=== PATIENT | male | born 1945 ===

== ENCOUNTER 2021-03-11 18:31 | Observation (INO) | payer MEDICARE, OTHER ==
[2021-03-11] MEDS ORDERED: Sodium Chloride 0.9% 2.5 ML Syringe FLUSH PRN (18:35)
[2021-03-11] MEDS ORDERED: Sodium Chloride 0.9% 10 ML Syringe FLUSH PRN (18:35)
[2021-03-11] MEDS ORDERED: Aspirin 81 MG Tab.Chew PO ONE (18:38)
--- NOTE | 2021-03-11 18:41 | EDM.PDOC ---
ED HPI GENERAL MEDICAL PROBLEM - General Chief Complaint: Chest Pain Stated Complaint: Chest pain Time Seen by Provider: 03/11/21 18:36 Source of Information: Reports: Patient History Limitations: Reports: No Limitations - History of Present Illness INITIAL COMMENTS - FREE TEXT/NARRATIVE: HISTORY AND PHYSICAL: History of present illness: Patient is a 75-year-old male who presents to the emergency room with complaints of midsternal chest pain that started at 230 this afternoon. He states the pain started while he was driving and he felt slightly short of breath with a sharp pressure across his anterior chest. Describes the pain as constant but has improved since first noticing it. Patient denies any fever, chills, headache, change in vision, syncope or near syncope. Denies any back pain, hemoptysis or cough. Denies any abdominal pain, nausea, vomiting, diarrhea, constipation or dysuria. Has not noted any blood in urine or stool. Patient has been eating and drinking appropriately. Past medical history of type 2 diabetes, hypertension, elevated cholesterol, and prostate cancer (resolved). Primary care provider is poncho Conde routinely. Denies any personal history of heart disease. Denies any smoking history. Review of systems: As per history of present illness and below otherwise all systems reviewed and negative. Past medical history: As per history of present illness and as reviewed below otherwise noncontributory. Surgical history: As per history of present illness and as reviewed below otherwise noncontributory. Social history: See social history for further information Family history: As per history of present illness and as reviewed below otherwise noncontributory. Physical exam: General: Well developed and well nourished 75 year old male. Alert and orientated x 3. Nontoxic in appearance and in no acute distress. Vital signs are stable and have been reviewed by me. Nursing notes were reviewed. HEENT: Atraumatic, normocephalic, pupils equal and reactive bilaterally, negative for conjunctival pallor or scleral icterus, mucous membranes moist, TMs normal bilaterally, throat clear, neck supple, nontender, trachea midline. No drooling or trismus noted. No meningeal signs. No hot potato voice noted. Lungs: Clear to auscultation bilaterally. No wheezes, rales, or rhonchi. Chest nontender. Normal work of breathing, no accessory muscles used. Heart: S1S2, regular rate and rhythm without overt murmur, gallops, or rubs. No JVD. No peripheral edema Abdomen: Soft, obese, nontender. Normoactive bowel sounds. Negative for masses or costovertebral tenderness. Skin: Intact, warm, dry. No lesions or rashes noted. Hematologic: No petechiae or purpra. Mucosa appropriate color and normal nail bed color and refill. Extremities: Atraumatic, moves all extremities per self without difficulty or deficits, negative for cords or calf pain. Neurovascular unremarkable. Neuro: Awake, alert, oriented. Cranial nerves II through XII unremarkable. Cerebellum unremarkable. Motor and sensory unremarkable throughout. Exam nonfocal. Psychiatric: Mood and affect are appropriate. Normal thought process. Answering questions appropriately. Notes: *This patient was seen and evaluated during the 2019 SARS-CoV-2 novel coronavirus pandemic period. Community viral transmission is ongoing at time of this encounter and the emergency department is operating under pandemic response procedures. Patient is a 75-year-old male who presents to the emergency room with complaints of anterior chest pain. Discomfort started at 2:30 in the afternoon and has gradually gotten better. He denies any personal history of heart disease. States he has seen a wrapper stitcher in the past as it was recommended but "everything is fine". Physical exam is unremarkable. Patient does have a moderate heart score due to age, history and risk factors. Lab work, including initial troponin is normal. Chest x-ray is unremarkable. I have talked with the patient about today's findings, in addition to providing specific details for plan of care. Reassessment at the time of disposition demonstrates that the patient is in no acute distress. He is pain free at this time. Due to him being a moderate risk, will admit for observation. Patient is currently resting. He offers no current complaints or concerns. Patient has had the COVID-19 vaccinations, ID card to validate. Dr Carl was consulted and agreeable to plan of care. Patient will be placed on telemetry. Diagnostics: CBC, CMP, UA, troponin, EKG, chest x-ray, COVID-19 Therapeutics: Saline lock, aspirin 324 mg, morphine Impression: Chest pain Plan: Observation admission to med/surg with telemetry Definitive disposition and diagnosis as appropriate pending reevaluation and review of above. chest Pain Score (Numeric/FACES): 5 - Related Data Allergies Allergy/AdvReac Type Severity Reaction Status Date / Time No Known Allergies Allergy Verified 03/11/21 18:35 Home Meds: Home Meds Enalapril [Vasotec] 20 mg PO DAILY 03/11/21 [History] Pantoprazole [ProTONIX IV] 40 mg PO DAILY 03/11/21 [History] Pioglitazone HCl 15 mg PO DAILY 03/11/21 [History] Tolterodine Tartrate 4 mg PO DAILY 03/11/21 [History] amLODIPine [Norvasc] 2.5 mg PO DAILY 03/11/21 [History] atorvaSTATin [Lipitor] 10 mg PO DAILY 03/11/21 [History] glipiZIDE [Glipizide] 10 mg PO DAILY 03/11/21 [History] metFORMIN [Glucophage] 2,000 mg PO DAILY 03/11/21 [History] ED ROS GENERAL - Review of Systems Review Of Systems: Comprehensive ROS is negative, except as noted in HPI. ED EXAM, GENERAL - Physical Exam Exam: See Below (See dictation) Course - Vital Signs Last Recorded V/S: Last Vital Signs Temp 97 F 03/11/21 18:33 Pulse 79 03/11/21 18:33 Resp BP 168/79 H 03/11/21 18:33 Pulse Ox 95 03/11/21 18:33 - Orders/Labs/Meds Orders: Active Orders 24 hr Category Date Time Status Admission Status [Patient Status] [ADT] Stat ADT 03/11/21 19:41 Active EKG Documentation Completion [RC] STAT Care 03/11/21 18:35 Active CORONAVIRUS COVID-19 PAZ [MOLEC] Stat Lab 03/11/21 18:38 Ordered Sodium Chloride 0.9% [Saline Flush] Med 03/11/21 18:35 Active 10 ml FLUSH ASDIRECTED PRN Sodium Chloride 0.9% [Saline Flush] Med 03/11/21 18:35 Active 2.5 ml FLUSH ASDIRECTED PRN Saline Lock Insert [OM.PC] Stat Oth 03/11/21 18:35 Ordered Medication Orders Sodium Chloride (Sodium Chloride 0.9% 10 Ml Syringe) 10 ml FLUSH ASDIRECTED PRN PRN Reason: Keep Vein Open Last Admin: 03/11/21 19:50 Dose: 10 ml Documented by: ELIZABETH Sodium Chloride (Sodium Chloride 0.9% 2.5 Ml Syringe) 2.5 ml FLUSH ASDIRECTED P RN PRN Reason: Keep Vein Open Last Admin: 03/11/21 19:50 Dose: 2.5 ml Documented by: ELIZABETH Labs: Laboratory Tests 03/11/21 03/11/21 Range/Units 18:41 18:41 WBC 4.32 (4.0-11.0) K/uL RBC 4.21 L (4.50-5.90) M/uL Hgb 13.3 (13.0-17.0) g/dL Hct 40.0 (38.0-50.0) % MCV 95.0 (80.0-98.0) fL MCH 31.6 (27.0-32.0) pg MCHC 33.3 (31.0-37.0) g/dL RDW Std Deviation 46.9 (28.0-62.0) fl RDW Coeff of Tiara 14 (11.0-15.0) % Plt Count 169 (150-400) K/uL MPV 10.30 (7.40-12.00) fL Neut % (Auto) 49.6 (48.0-80.0) % Lymph % (Auto) 37.0 (16.0-40.0) % [place] % (Auto) 11.1 (0.0-15.0) % Eos % (Auto) 2.1 (0.0-7.0) % Baso % (Auto) 0.2 (0.0-1.5) % Neut # (Auto) 2.1 (1.4-5.7) K/uL Lymph # (Auto) 1.6 (0.6-2.4) K/uL [place] # (Auto) 0.5 (0.0-0.8) K/uL Eos # (Auto) 0.1 (0.0-0.7) K/uL Baso # (Auto) 0.0 (0.0-0.1) K/uL Nucleated RBC % 0.0 /100WBC Nucleated RBCs # 0 K/uL Sodium 142 (136-148) mmol/L Potassium 4.1 (3.5-5.1) mmol/L Chloride 104 (98-107) mmol/L Carbon Dioxide 27.6 (21.0-32.0) mmol/L BUN 18 (7.0-18.0) mg/dL Creatinine 1.3 (0.8-1.3) mg/dL Est Cr Clr Drug Dosing 49.10 mL/min Estimated GFR (MDRD) 53.8 ml/min Glucose 145 H (74-106) mg/dL Calcium 9.2 (8.5-10.1) mg/dL Total Bilirubin 0.5 (0.2-1.0) mg/dL AST 10 L (15-37) IU/L ALT 17 (14-63) IU/L Alkaline Phosphatase 80 (46-116) U/L Troponin I < 0.050 (0.000-0.056) ng/mL Total Protein 6.8 (6.4-8.2) g/dL Albumin 3.3 L (3.4-5.0) g/dL Globulin 3.5 (2.6-4.0) g/dL Albumin/Globulin Ratio 0.9 (0.9-1.6) Meds: Medications Generic Name Dose Route Start Last Admin Trade Name Freq PRN Reason Stop Dose Admin Sodium Chloride 10 ml 03/11/21 18:35 03/11/21 19:50 Sodium Chloride 0.9% 10 Ml Syringe FLUSH 10 ml ASDIRECTED PRN Administration Keep Vein Open Sodium Chloride 2.5 ml 03/11/21 18:35 03/11/21 19:50 Sodium Chloride 0.9% 2.5 Ml Syringe FLUSH 2.5 ml ASDIRECTED PRN Administration Keep Vein Open Discontinued Medications Generic Name Dose Route Start Last Admin Trade Name Freq PRN Reason Stop Dose Admin Aspirin 324 mg 03/11/21 18:38 03/11/21 19:49 Aspirin 81 Mg Tab.Chew PO 03/11/21 18:39 324 mg ONETIME ONE Administration Morphine Sulfate 2 mg 03/11/21 19:25 03/11/21 19:49 Morphine 2 Mg/Ml Syringe IVPUSH 03/11/21 19:26 2 mg ONETIME ONE Administration Departure - Departure Time of Disposition: 19:45 Disposition: Refer to Observation Clinical Impression: Chest pain, rule out acute myocardial infarction Referrals: Corey Treviño MD [Primary Care Provider] - Forms: ED Department Discharge Sepsis Event Note (ED) - Evaluation Sepsis Screening Result: No Definite Risk - Focused Exam Vital Signs: Vital Signs Temp Pulse BP Pulse Ox 03/11/21 18:33 97 F 79 168/79 H 95 - My Orders Last 24 Hours: My Active Orders 03/11/21 18:35 EKG Documentation Completion [RC] STAT Sodium Chloride 0.9% [Saline Flush] 10 ml FLUSH ASDIRECTED PRN Sodium Chloride 0.9% [Saline Flush] 2.5 ml FLUSH ASDIRECTED PRN Saline Lock Insert [OM.PC] Stat 03/11/21 18:38 CORONAVIRUS COVID-19 PAZ [MOLEC] Stat 03/11/21 19:41 Admission Status [Patient Status] [ADT] Stat - Assessment/Plan Last 24 Hours: My Active Orders 03/11/21 18:35 EKG Documentation Completion [RC] STAT Sodium Chloride 0.9% [Saline Flush] 10 ml FLUSH ASDIRECTED PRN Sodium Chloride 0.9% [Saline Flush] 2.5 ml FLUSH ASDIRECTED PRN Saline Lock Insert [OM.PC] Stat 03/11/21 18:38 CORONAVIRUS COVID-19 PAZ [MOLEC] Stat 03/11/21 19:41 Admission Status [Patient Status] [ADT] Stat
--- NOTE | 2021-03-11 18:43 | PCM.EKG ---
#1 Interpretation EKG Interpretation Comments: EKG: As interpreted by ER physician: Mk: Nonspecific ST-T wave abnormalities Normal axis No evidence of ST elevation RI Normal sinus rhythm with a heart of 75 with occasional PAC
[2021-03-11 19:15] LABS: BLOOD UREA NITROGEN,BUN 18 mg/dL (7.0-18.0); CARBON DIOXIDE,CO2 27.6 mmol/L (21.0-32.0); CHLORIDE,CL 104 mmol/L (98-107); GLUCOSE RANDOM 145 mg/dL (74-106); POTASSIUM,K 4.1 mmol/L (3.5-5.1); SODIUM,NA 142 mmol/L (136-148)
[2021-03-11] MEDS ORDERED: Morphine 2 MG/ML SYRINGE IVPUSH ONE (19:25)
--- NOTE | 2021-03-11 19:52 | CR ---
For Patients: As a result of the Century Cures Act, medical imaging exams and procedure reports are released immediately into your electronic medical record. You may view this report before your referring provider. If you have questions, please contact your health care provider. INDICATION: chest pain TECHNIQUE: Chest 1 view. COMPARISON: None. FINDINGS: Cardiovascular and mediastinum: Heart size and vasculature are normal in caliber and appearance. Mediastinum is within normal limits. Lungs and pleural space: Lungs are clear. No sign of infiltrate or mass. No sign of pleural effusion. No pneumothorax. Bones and soft tissues: No significant findings. IMPRESSION: Unremarkable chest. Dictated by: Jagjit Palomino MD @ 03/11/2021 19:51:40 (Electronically Signed)
[2021-03-11] MEDS ORDERED: Glucagon,Human Recombinant 1 MG Vial IM PRN (23:07)
[2021-03-11] MEDS ORDERED: 50% Dextrose in Water 50 ML Syringe IVPUSH PRN (23:07)
--- NOTE | 2021-03-11 23:10 | PCM.HP.2 ---
H&P History of Present Illness - General Date of Service: 03/11/21 Admit Problem/Dx: Admission Diagnosis/Problem Admission Diagnosis/Problem Chest pain, rule out acute myocardial infarction - History of Present Illness Initial Comments - Free Text/Narative: 75 yo male with pmh of HTN, DM, and prostate cancer who presents to the ED with a complaint of chest pain. Patient reports substernal chest pressure while driving home from [facility] [facility]. He had his drive him to the ED. He reports some associated symptoms of shortness of breath. PAtient denies any diaphorsis, cough, or lightheadednes. chest Pain Score (Numeric/FACES): 5 - Related Data Allergies/Adverse Reactions: Allergies Allergy/AdvReac Type Severity Reaction Status Date / Time No Known Allergies Allergy Verified 03/11/21 22:04 Home Medications: Home Meds Alfuzosin HCl [Alfuzosin HCl ER] 10 mg PO BID 03/11/21 [History] Enalapril [Vasotec] 20 mg PO DAILY 03/11/21 [History] Pantoprazole [ProTONIX IV] 40 mg PO DAILY 03/11/21 [History] Pioglitazone HCl 15 mg PO DAILY 03/11/21 [History] Tolterodine Tartrate 4 mg PO DAILY 03/11/21 [History] amLODIPine [Norvasc] 2.5 mg PO DAILY 03/11/21 [History] atorvaSTATin [Lipitor] 10 mg PO DAILY 03/11/21 [History] glipiZIDE [Glipizide] 10 mg PO DAILY 03/11/21 [History] metFORMIN [Glucophage] 1,000 mg PO BIDMEALS 03/11/21 [History] Past Medical History - Infectious Disease History Infectious Disease History: Reports: None - Past Surgical History GI Surgical History: Reports: Cholecystectomy Other Male Surgeries/Procedures: Prostate CA Social & Family History - Tobacco Use Tobacco Use Status *Q: Never Tobacco User Second Hand Smoke Exposure: No - Caffeine Use Caffeine Use: Reports: Coffee Other Caffeine Use: 2 cups in AM - Recreational Drug Use Recreational Drug Use: No H&P Review of Systems - Review of Systems: Review Of Systems: Comprehensive ROS is negative, except as noted in HPI. Exam - Exam Exam: See Below - Vital Signs Vital Signs: Last Vital Signs Temp 36.1 C 03/11/21 18:33 Pulse 76 03/11/21 21:38 Resp 16 03/11/21 21:38 BP 163/69 H 03/11/21 21:38 Pulse Ox 95 03/11/21 21:38 Weight: 135.5 kg - Exam General: Alert, Oriented HEENT: Mucosa Moist & [place] Neck: Supple, Trachea Midline Lungs: Clear to Auscultation, Normal Respiratory Effort Cardiovascular: Regular Rate, Regular Rhythm GI/Abdominal Exam: Normal Bowel Sounds, Soft, Non-Tender Extremities: Non-Tender, Pedal Edema (+1 edema) Skin: Warm, Dry, Intact Neurological: Cranial Nerves Intact. No: Focal Deficit - Patient Data Lab Results Last 24 hrs: Laboratory Results - last 24 hr 03/11/21 03/11/21 Range/Units 18:41 18:41 WBC 4.32 (4.0-11.0) K/uL RBC 4.21 L (4.50-5.90) M/uL Hgb 13.3 (13.0-17.0) g/dL Hct 40.0 (38.0-50.0) % MCV 95.0 (80.0-98.0) fL MCH 31.6 (27.0-32.0) pg MCHC 33.3 (31.0-37.0) g/dL RDW Std Deviation 46.9 (28.0-62.0) fl RDW Coeff of Tiara 14 (11.0-15.0) % Plt Count 169 (150-400) K/uL MPV 10.30 (7.40-12.00) fL Neut % (Auto) 49.6 (48.0-80.0) % Lymph % (Auto) 37.0 (16.0-40.0) % [place] % (Auto) 11.1 (0.0-15.0) % Eos % (Auto) 2.1 (0.0-7.0) % Baso % (Auto) 0.2 (0.0-1.5) % Neut # (Auto) 2.1 (1.4-5.7) K/uL Lymph # (Auto) 1.6 (0.6-2.4) K/uL [place] # (Auto) 0.5 (0.0-0.8) K/uL Eos # (Auto) 0.1 (0.0-0.7) K/uL Baso # (Auto) 0.0 (0.0-0.1) K/uL Nucleated RBC % 0.0 /100WBC Nucleated RBCs # 0 K/uL Sodium 142 (136-148) mmol/L Potassium 4.1 (3.5-5.1) mmol/L Chloride 104 (98-107) mmol/L Carbon Dioxide 27.6 (21.0-32.0) mmol/L BUN 18 (7.0-18.0) mg/dL Creatinine 1.3 (0.8-1.3) mg/dL Est Cr Clr Drug Dosing 49.10 mL/min Estimated GFR (MDRD) 53.8 ml/min Glucose 145 H (74-106) mg/dL Calcium 9.2 (8.5-10.1) mg/dL Total Bilirubin 0.5 (0.2-1.0) mg/dL AST 10 L (15-37) IU/L ALT 17 (14-63) IU/L Alkaline Phosphatase 80 (46-116) U/L Troponin I < 0.050 (0.000-0.056) ng/mL Total Protein 6.8 (6.4-8.2) g/dL Albumin 3.3 L (3.4-5.0) g/dL Globulin 3.5 (2.6-4.0) g/dL Albumin/Globulin Ratio 0.9 (0.9-1.6) Result Diagrams: 03/11/21 18:41 03/11/21 18:41 Sepsis Event Note - Evaluation Sepsis Screening Result: No Definite Risk - Focused Exam Vital Signs: Vital Signs Temp Pulse Resp BP Pulse Ox 03/11/21 21:38 76 16 163/69 H 95 03/11/21 20:30 64 16 167/81 H 97 03/11/21 19:30 70 16 146/65 H 94 L 03/11/21 18:33 36.1 C 79 168/79 H 95 Problem List Initiated/Reviewed/Updated: Yes Orders Last 24hrs: Active Orders 24 hr Category Date Time Status Admission Status [Patient Status] [ADT] Stat ADT 03/11/21 19:41 Active Antiembolic Devices [RC] PER UNIT ROUTINE Care 03/11/21 23:05 Active Blood Glucose Check, Bedside [RC] TIDAC Care 03/11/21 23:07 Active EKG Documentation Completion [RC] STAT Care 03/11/21 18:35 Active Oxygen Therapy [RC] PRN Care 03/11/21 23:05 Active Up ad Sara [RC] ASDIRECTED Care 03/11/21 23:05 Active VTE/DVT Education [RC] PER UNIT ROUTINE Care 03/11/21 23:05 Active Vital Signs [RC] Q4H Care 03/11/21 23:05 Active [employer] Diet [DIET] Diet 03/11/21 Breakfast Active TROPONIN I [CHEM] Q6H Lab 03/11/21 23:04 Ordered TROPONIN I [CHEM] Q6H Lab 03/12/21 05:04 Ordered Alfuzosin HCl [Alfuzosin HCl ER] Med 03/12/21 09:00 Ordered 10 mg PO BID Dextrose 50% in Water Med 03/11/21 23:07 Ordered 50 ml IVPUSH ASDIRECTED PRN Enalapril [Vasotec] Med 03/12/21 09:00 Ordered 20 mg PO DAILY Glucagon,Human Recombinant [GlucaGen] Med 03/11/21 23:07 Ordered 1 mg IM ASDIRECTED PRN Insulin Aspart [NovoLOG] Med 03/12/21 07:30 Ordered See Protocol SUBCUT TIDAC Sodium Chloride 0.9% [Saline Flush] Med 03/11/21 18:35 Active 10 ml FLUSH ASDIRECTED PRN Sodium Chloride 0.9% [Saline Flush] Med 03/11/21 18:35 Active 2.5 ml FLUSH ASDIRECTED PRN Tolterodine Tartrate Med 03/12/21 09:00 Ordered 4 mg PO DAILY amLODIPine [Norvasc] Med 03/12/21 09:00 Ordered 2.5 mg PO DAILY atorvaSTATin [Lipitor] Med 03/12/21 09:00 Ordered 10 mg PO DAILY Saline Lock Insert [OM.PC] Stat Oth 03/11/21 18:35 Ordered Sequential Compression Device [OM.PC] Per Unit Routine Oth 03/11/21 23:05 Ordered Resuscitation Status Routine Resus Stat 03/11/21 23:05 Ordered Medication Orders Amlodipine Besylate (Amlodipine 2.5 Mg Tab) 2.5 mg PO DAILY ALEXANDREA Atorvastatin Calcium (Atorvastatin 10 Mg Tab) 10 mg PO DAILY ALEXANDREA Dextrose/Water (50% Dextrose In Water 50 Ml Syringe) 50 ml IVPUSH ASDIRECTED PRN PRN Reason: Hypoglycemia Enalapril Maleate (Enalapril 10 Mg Tab) 20 mg PO DAILY ALEXANDREA Glucagon (Glucagon,Human Recombinant 1 Mg Vial) 1 mg IM ASDIRECTED PRN PRN Reason: Hypoglycemia Insulin Aspart (Insulin Aspart 100 Units/Ml 3 Ml Pen) 0 unit SUBCUT TIDAC ALEXANDREA; Protocol Non-Formulary Medication (Alfuzosin Hcl [Alfuzosin Hcl Er]) 10 mg PO BID ALEXANDREA Non-Formulary Medication (Tolterodine Tartrate) 4 mg PO DAILY ALEXANDREA Sodium Chloride (Sodium Chloride 0.9% 10 Ml Syringe) 10 ml FLUSH ASDIRECTED PRN PRN Reason: Keep Vein Open Last Admin: 03/11/21 19:50 Dose: 10 ml Documented by: ELIZABETH Sodium Chloride (Sodium Chloride 0.9% 2.5 Ml Syringe) 2.5 ml FLUSH ASDIRECTED PRN PRN Reason: Keep Vein Open Last Admin: 03/11/21 19:50 Dose: 2.5 ml Documented by: ELIZABETH Assessment/Plan Comment:: 75 yo male admitted for chest pain. Addendum: Patient ruled out for acute coronary syndrome with serial negative cardiac enzymes and EKGs. He was monitored on telemetry overnight. He remains chest pain free. Due to elevated blood pressures he was started on HCTZ 25mg daily which he was given a prescription for at discharge. He was instructed to follow up with Dr. Treviño and inquire about the continued use of amlodipine given his pedal edema. He was referred to outpatient cardiac stress testing.
[2021-03-11] MEDS ORDERED: Hydrochlorothiazide 25 MG Tab PO ONE (23:13)
[2021-03-12] MEDS: Insulin Aspart 100 Units/ML 3 ML Pen SUBCUT SCH ×2 (07:44→11:59)
[2021-03-12] MEDS ORDERED: ALFUZOSIN HCL 10 MG PO SCH (09:00)
[2021-03-12] MEDS ORDERED: atorvaSTATin 10 MG Tab PO SCH (09:00)
[2021-03-12] MEDS ORDERED: amLODIPine 2.5 MG Tab PO SCH (09:00)
[2021-03-12] MEDS ORDERED: Magnesium Sulfate/Water 2 GM/50 ML Premix Bag IV ONE (10:17)
[2021-03-12] MEDS ORDERED: Magnesium Sulfate/Water 2 GM/50 ML BAG IV ONE (10:30)
== END 2021-03-12 13:30 | disposition home or self-care (01) ==
LOC: MW.ED 18:31 → MW.MS 19:41
PROVIDERS: ADMIT Internal Medicine; ATTEND Internal Medicine
DX: R07.89 Other chest pain (principal); E11.9 Type 2 diabetes mellitus without complications; I10 Essential (primary) hypertension; E78.00 Pure hypercholesterolemia, unspecified; Z85.46 Personal history of malignant neoplasm of prostate; Z79.84 Long term (current) use of oral hypoglycemic drugs; Z79.899 Other long term (current) drug therapy
CPT/HCPCS: 36415; 71045; 80053; 82947; 83735; 84484; 85025; 93005; 96374; 99285; A9270; J1815; J2270; J3475; 93010; 96365; 96366; 96375; 99283; G0378